=== PATIENT | female | born 1940 | race Caucasian/White ===

== ENCOUNTER 2024-01-18 20:07 | Emergency (ER) | payer MEDICARE, OTHER, SELFPAY ==
[2024-01-18 20:17] VITALS: BP 142/83; PULSE 100; RESP 22; TEMP 37.1; O2SAT 95
[2024-01-18 20:37] VITALS: BP 142/78; PULSE 100; RESP 16; TEMP 37.1; O2SAT 98
--- NOTE | 2024-01-18 20:45 | DI.CT_ITS ---
Exam(s) CT ABDOMEN PELVIS W EXAM: CT ABDOMEN PELVIS W CLINICAL HISTORY: abdominal pain, hx of divertic, LLQ and LUQ TECHNIQUE: Imaging Protocol: Axial computed tomography images with coronal and sagittal reformatted images were created and reviewed. CONTRAST MATERIAL: Intravenous: Omnipaque 350 Contrast volume:100 mL Oral: No COMPARISON: No exams were available for comparison FINDINGS: ABDOMEN: Lung Bases: Mild atelectasis or scarring is seen in the lung bases. Liver: Normal density. No measurable mass. There is mild nodularity of the liver suggesting hepatic c irrhosis. Portal, Superior Mesenteric, and Splenic Veins: Unremarkable. Gallbladder and Biliary Tract: Status post cholecystectomy. No significant biliary ductal dilatation is present. Pancreas: Normal density, no abnormal calcifications or inflammatory process. Spleen: Normal. Adrenals: No masses seen. Kidneys: Normal size, contour and axis. No radiodense stones or obstructive uropathy. No masses seen. Abdominal Aorta: Abdominal portion non-dilated. Atherosclerotic calcification is present. Bowel: The stomach is incompletely distended limiting evaluation. No gross abnormality is identified . There is diverticulosis seen in the colon. Mild inflammatory changes are seen around the mid sigm oid colon suspicious for acute diverticulitis. There is no evidence of bowel obstruction. No eviden ce of appendicitis. No abscess is seen. Peritoneal Cavity: No ascites, collection or mesenteric inflammatory response. No free air. Lymph Nodes: Within normal limits. Bones: Within normal limits for the patient's age. 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 There is grade 1 spondylolisthesis of L5 on S1. Soft Tissues: There is a small fat containing umbilical hernia. There is also a moderate-sized fat c ontaining right side lateral ventricle hernia PELVIS: Bladder: Symmetric distention, no gross wall thickening. Reproductive Organs: Unremarkable as visualized. Lymph Nodes: Within normal limits. Bones: Within normal limits for the patient's age. IMPRESSION: 1. Acute diverticulitis involving the mid sigmoid colon without evidence of abscess or free air. 2. Incidental findings in the abdomen and pelvis including fat containing umbilical hernia and modera te size fat containing right-sided lateral ventricle hernia. 3. Findings suggestive of hepatic cirrhosis. RADIATION DOSE DELIVERED: 490.15mGy.cm Total DLP DATA REPOSITORY: All CT scans at this facility are submitted to the National Radiology Data Registry (NRDR) Dose Index Registry (DIR) with the [employer] ([employer]). RADIATION OPTIMIZATION: All CT scans at this facility use at least one of these dose optimization te chniques: automated exposure control; mA and/or kV adjustment per patient size (includes targeted exa ms where dose is matched to clinical indication); or iterative reconstruction.
[2024-01-18 21:09] LABS: Abs Immature Grans 0.06 10^3/uL (0.0-0.06); Absolute Basophil Count 0.05 10^3/uL (0.0-0.2); Absolute Eosinophil Count 0.18 10^3/uL (0.0-0.7); Absolute Lymphocyte Count 1.97 10^3/uL (1.2-3.4); Absolute Monocyte Count 1.03 10^3/uL (0.1-0.8); Absolute Neutrophil Count 8.45 10^3/uL (1.2-6.7); Basophils % 0.4 %; Eosinophils % 1.5 %; HCT 42.3 % (36.0-46.0); Immature Grans % 0.5 %; Lymphocytes % 16.8 %; MCH 33.7 pg (27.0-33.0); MCHC 33.1 % (32.0-36.0); MCV 102 fL (80-95); MPV 10.3 fL (8.0-11.0); Monocytes % 8.8 %; Platelet Count 229 10^3/uL (130-400); RBC 4.16 10^6/uL (3.93-5.22); RDW 12.6 % (11.7-14.6); RDW-SD 47.7 fL; WBC 11.74 10^3/uL (4.4-10.8)
[2024-01-18 21:11] LABS: Bilirubin Negative (Negative); Blood Small (Negative); Clarity Clear (Clear); Glucose Negative (Negative); Ketones Negative (Negative); Leukocyte Esterase Negative (Negative); Nitrite Negative (Negative); Specific Gravity 1.015 (1.005-1.025); Urobilinogen 0.2 mg/dL (Up to 0.2); pH 5.5 (5-8)
[2024-01-18] MEDS: Normal Saline - Diluent 50 ML VIAL IJ (21:16)
[2024-01-18] MEDS: Omnipaque 350 MG/ML 100 ML BTL IJ (21:17)
[2024-01-18 21:22] LABS: Bacteria Negative HPF (Negative); C & S Indicated? No; Casts Negative LPF (Negative); Crystals Negative HPF (Negative); Epithelial Cells Rare HPF (Negative); Mucus Negative (Negative); Other Cells Rare Transitional (Negative); RBC 0-2 HPF (0-2); WBC Negative HPF (0-5)
[2024-01-18 21:27] LABS: ALT 22 U/L (14-59); AST 15 U/L (15-37); Albumin 4.1 g/dL (3.4-5.0); Alkaline Phosphatase 92 U/L (46-116); Anion Gap 10.3 mmol/L (3-11); BUN 29 mg/dL (7-18); Bilirubin, Total 0.83 mg/dL (0.2-1.0); CO2 25.7 mmol/L (21.0-32.0); Calcium 9.8 mg/dL (8.5-10.1); Chloride 102 mmol/L (98-107); Glucose 128 mg/dL (74-106); Lipase 57 U/L (16-77); Potassium 4.3 mmol/L (3.5-5.1); Sodium 138 mmol/L (136-145)
--- NOTE | 2024-01-18 22:33 | DI.VRAD_ITS ---
PROCEDURE INFORMATION: Exam: CT Abdomen And Pelvis With Contrast Exam date and time: 01/18/2024 9:15 PM Age: 83 years old Clinical indication: Abdominal pain; Additional info: Abdominal pain, HX of divertic, llq and luq TECHNIQUE: Imaging protocol: Computed tomography of the abdomen and pelvis with contrast. Contrast material: OMNI 350; Contrast volume: 100 ml; Contrast route: INTRAVENOUS (IV); COMPARISON: No relevant prior studies available. FINDINGS: Lungs: Minimal bibasilar atelectasis or scarring. Heart: Calcification of the mitral valve and aortic valve annulus. Coronary arteries: Minimal atherosclerotic calcification of the visualized right coronary artery. Liver: Nodular hepatic peripheral contour, compatible with cirrhosis. Mild hepatomegaly. Gallbladder and biliary ducts: Gallbladder surgically absent. Pancreas: Normal. Spleen: Normal. Adrenal glands: Mild bilateral adrenal hyperplasia. Kidneys and ureters: Normal. Stomach and bowel: Colonic diverticulosis, with acute diverticulitis involving the mid sigmoid colon, where there is wall thickening and adjacent associated inflammatory stranding. No perforation or abscess. Appendix: No evidence of appendicitis. Intraperitoneal space: Unremarkable. No free air. No significant fluid collection. Vasculature: Atherosclerotic disease of the abdominal aorta and iliac arteries. Lymph nodes: Unremarkable. No enlarged lymph nodes. Urinary bladder: Unremarkable as visualized. Reproductive: Unremarkable as visualized. Bones/joints: Left hip arthroplasty, without acute complications. Multilevel thoracolumbar spine degenerative disc space narrowing and osteophyte formation. Right L5 pars defect. Grade 1 anterolisthesis of L5 on S1. Dextroscoliosis of the lumbar spine. Soft tissues: Normal. IMPRESSION: Colonic diverticulosis, with acute diverticulitis involving the mid sigmoid colon, where there is wall thickening and adjacent associated inflammatory stranding. No perforation or abscess. Dictated and Authenticated by: Marquise Saul MD. Ordering:ANASTASIIA Corral MD
--- NOTE | 2024-01-18 22:45 | RT.EKG_ITS ---
APPROVED REPORT Exam: Resting ECG Reason for Exam: eval qtc Patient Location: E HR:86 bpm ECG Measurements Heart Rate 86 AXIS AL 151 P 40 QRSd 84 QRS 16 QT 365 T 31 QTc 436 Conclusion Sinus rhythm...normal P axis, V-rate 60- 99 Inferior infarct, old...Q >35mS, II III aVF Physician: No stemi
[2024-01-18] MEDS: metroNIDAZOLE 500 MG TAB, 3 TABS/BTL PO (23:05)
[2024-01-18 23:09] VITALS: BP 107/62; PULSE 86; RESP 16; O2SAT 94
--- NOTE | 2024-01-18 23:10 | ED.GENADUL_ITS ---
Discharge Plan Disposition Patient Disposition: Home Discharge Details Clinical Impression: Diverticulitis Primary Care Provider: Cynthia,Local ED Provider: Shayna Smith Home Meds and New Rx's Prescriptions: New oxycodone 5 mg capsule 5 mg PO Q8H PRNQty: 8 0RF ciprofloxacin HCl [Cipro] 500 mg tablet 500 mg PO BID Qty: 18 0RF metronidazole 500 mg tablet 500 mg PO TID Qty: 18 0RF Saccharomyces boulardii [Florastor] 250 mg capsule 250 mg PO BID Qty: 20 0RF Continued enalapril maleate 10 mg tablet 10 mg PO DAILY hydrochlorothiazide 12.5 mg tablet 12.5 mg PO DAILY cholecalciferol (vitamin D3) [Vitamin D3] 10 mcg (400 unit) tablet 10 mcg PO DAILY Discharge Instructions Instructions: Diverticulitis (DC) Additional Instructions: Take antibiotics as prescribed Probiotic daily while on antibiotics Oxycodone is addictive use very sparingly Take Tylenol as needed for discomfort Please return immediately should develop worsening pain, fever, chills, or if any additional complaints arise HPI General Date/Time Provider Initiated Documentation: 01/18/24 20:20 . HPI Narrative: This 83-year-old female presents with report of left lower quadrant abdominal discomfort no the past 48 hours. Remote history of diverticulitis 10 years ago. Denies any fever chills. Denies any urinary symptoms. Denies any bloody stools. Denies any nausea or vomiting. Denies trauma. Related Data Home Medications ?Medication ?Instructions ?Recorded ?Confirmed Saccharomyces boulardii 250 mg 250 mg PO BID #20 caps 01/18/24 capsule (Florastor) cholecalciferol (vitamin D3) 10 10 mcg PO DAILY 01/18/24 01/18/24 mcg (400 unit) tablet (Vitamin D3) ciprofloxacin HCl 500 mg tablet 500 mg PO BID #18 tabs 01/18/24 (Cipro) enalapril maleate 10 mg tablet 10 mg PO DAILY 01/18/24 01/18/24 hydrochlorothiazide 12.5 mg tablet 12.5 mg PO DAILY 01/18/24 01/18/24 metronidazole 500 mg tablet 500 mg PO TID #18 tabs 01/18/24 oxycodone 5 mg capsule 5 mg PO Q8H PRN #8 caps 01/18/24 Previous Rx's ?Medication ?Instructions ?Recorded Saccharomyces boulardii 250 mg 250 mg PO BID #20 caps 01/18/24 capsule (Florastor) ciprofloxacin HCl 500 mg tablet 500 mg PO BID #18 tabs 01/18/24 (Cipro) metronidazole 500 mg tablet 500 mg PO TID #18 tabs 01/18/24 oxycodone 5 mg capsule 5 mg PO Q8H PRN #8 caps 01/18/24 Allergies Allergy/AdvReac Type Severity Reaction Status Date / Time amoxicillin AdvReac Intermediate Dizziness/L Verified 01/18/24 20:17 ighthead Penicillins AdvReac Intermediate Dizziness/L Verified 01/18/24 20:17 ighthead General Stated Complaint: Abd Prob ALESHA: 3 Exam Narrative Exam Narrative: Patient presenting with left lower quadrant tenderness without rebound or guarding, alert and oriented, lungs clear to auscultation, no respiratory distress, distal pulses intact Course Vital Signs Vital signs: Vital Signs Temperature 37.1 C 01/18/24 20:17 Pulse 100 H 01/18/24 20:17 Respiratory Rate 22 01/18/24 20:17 Blood Pressure 142/83 H 01/18/24 20:17 Pulse Oximetry 95 01/18/24 20:17 Temperature 37.1 C 01/18/24 20:37 Temperature Source Tympanic 01/18/24 20:37 Pulse 86 01/18/24 23:09 Respiratory Rate 16 01/18/24 23:09 Respiratory Effort Normal, Non-Labored 01/18/24 20:33 Blood Pressure 107/62 01/18/24 23:09 Blood Pressure Position Sitting 01/18/24 20:17 Pulse Oximetry 94 01/18/24 23:09 Oxygen Delivery Method Room Air 01/18/24 20:37 Oxygen Flow Rate 0 01/18/24 20:17 End Tidal Co2 6 01/18/24 20:37 Pain Level 6 01/18/24 20:17 Lab/Test Results Lab/Test Results: Laboratory Tests Range/Units 01/18/24 01/18/24 20:30 21:04 WBC (4.4-10.8) 10^3/uL 11.74 H RBC (3.93-5.22) 10^6/uL 4.16 Hgb (11.2-15.7) g/dL 14.0 Hct (36.0-46.0) % 42.3 MCV (80-95) fL 102 H MCH (27.0-33.0) pg 33.7 H MCHC (32.0-36.0) % 33.1 RDW (11.7-14.6) % 12.6 Plt Count (130-400) 10^3/uL 229 MPV (8.0-11.0) fL 10.3 Immature Gran % % 0.5 Neutrophils % % 72.0 Lymphocytes % % 16.8 Monocytes % % 8.8 Eosinophils % % 1.5 Basophils % % 0.4 Nucleated RBC % (0.0-0.3) % 0.0 Absolute Neutrophils (1.2-6.7) 10^3/uL 8.45 H Absolute Lymphocytes (1.2-3.4) 10^3/uL 1.97 Absolute Monocytes (0.1-0.8) 10^3/uL 1.03 H Absolute Eosinophils (0.0-0.7) 10^3/uL 0.18 Absolute Basophils (0.0-0.2) 10^3/uL 0.05 Sodium (136-145) mmol/L 138 Potassium (3.5-5.1) mmol/L 4.3 Chloride (98-107) mmol/L 102 Carbon Dioxide (21.0-32.0) mmol/L 25.7 Anion Gap (3-11) mmol/L 10.3 BUN (7-18) mg/dL 29 H Creatinine (0.55-1.02) mg/dL 1.0 Est GFR (CKD-EPI 2020) (mL/min/1.73m2) 56.60 Glucose (74-106) mg/dL 128 H Calcium (8.5-10.1) mg/dL 9.8 Total Bilirubin (0.2-1.0) mg/dL 0.83 AST (15-37) U/L 15 ALT (14-59) U/L 22 Alkaline Phosphatase (46-116) U/L 92 Total Protein (6.4-8.2) g/dL 8.0 Albumin (3.4-5.0) g/dL 4.1 Lipase (16-77) U/L 57 Urine Color (Yellow) Yellow Urine Clarity (Clear) Clear Urine pH (5-8) 5.5 Ur Specific [place] (1.005-1.025) 1.015 Urine Protein (Neg-Trace) mg/dL Negative Urine Ketones (Negative) mg/dL Negative Urine Blood (Negative) Small H Urine Nitrite (Negative) Negative Urine Bilirubin (Negative) Negative Urine Urobilinogen (Up to 0.2) mg/dL 0.2 Ur Leukocyte Esterase (Negative) Negative Urine RBC (0-2) HPF 0-2 Urine WBC (0-5) HPF Negative Ur Epithelial Cells (Negative) HPF Rare Urine Crystals (Negative) HPF Negative Urine Bacteria (Negative) HPF Negative Urine Casts (Negative) LPF Negative Urine Mucus (Negative) Negative Urine Other (Negative) Rare Transitional Ur Culture Indicated? No Urine Glucose (Negative) mg/dL Negative Medical Decision Making 83-year-old female presenting with left lower quadrant abdominal tenderness without rebound or guarding, CT shows evidence of acute diverticulitis without evidence of perforation per radiology interpretation my review, diagnostic labs are reassuring, very mild leukocytosis at 11,000. Vitals are remained stable, patient has not requested any pain medication throughout this encounter. Initiated Cipro and Flagyl as patient is penicillin allergic. EKG was ordered, no QTc prolongation. Oxycodone was supplied, risk of addiction reviewed. Patient encouraged to follow-up with primary care physician in 1 to 2 days for reassessment, return precautions reviewed and patient expressed understanding. Discharged home in stable condition with stable vitals Quality:SDOH Health Related Social Needs: No Data to Display PFSH All Active Problems (Updated 01/18/24 @ 22:55 by JAMESON Rodríguez) Diverticulitis (Chronic) Social History Smoking/Tobacco Use Status: Never Smoking risk assessment performed?: Yes Alcohol Intake: current Alcohol Intake frequency: holidays/special occasions only Substance use type: does not use Housing: house [facility] Have you Been Recently Intoxicated or Drunk Within the Last 30 days?: No Have you Ever Experienced Previous Episodes of Alcohol Withdrawal?: No Have you ever Experienced Withdrawal Seizures?: No Have you ever Experienced Delirium Tremens(DT)s?: No Have you ever undergone Alcohol Rehabilitation Treatment (i.e, inpt ot outpatient treatment programs)?: No Have you ever Experienced Blackouts?: No Have you ever Combined Alcohol with other Downers within the last 90 days?: No Have you ever Combined Alcohol with any other Substance of Abuse during the last 90 days?: No Positive Blood Alcohol level on Presentation? [PCS.BAL]: No Evidence of Increased Autonomic Activity (i.e. HR>120, tremor, sweating, agitation, nausea)?: No Result: 0
--- NOTE | 2024-01-22 15:05 | W.EDPROG ---
Date of service: 01/22/24 Time of Service: 15:05 Medical Decision Making This patient was prescribed oxycodone capsules following a recent ED visit in the setting of diverticulitis. Unfortunately her pharmacy did not have capsules so we will order tablets instead. oxycodone 5 mg capsule 5 mg PO Q8H PRNQty: 8 0RF Quality:SDOH Health Related Social Needs: No Data to Display Discharge Plan Disposition Patient Disposition: Home Discharge Details Clinical Impression: Diverticulitis Primary Care Provider: Cynthia,Local ED Provider: Shayna Smith Home Meds and New Rx's Prescriptions: New ciprofloxacin HCl [Cipro] 500 mg tablet 500 mg PO BID Qty: 18 0RF metronidazole 500 mg tablet 500 mg PO TID Qty: 18 0RF Saccharomyces boulardii [Florastor] 250 mg capsule 250 mg PO BID Qty: 20 0RF oxycodone 5 mg tablet 5 mg PO Q8H PRNQty: 8 0RF Continued enalapril maleate 10 mg tablet 10 mg PO DAILY hydrochlorothiazide 12.5 mg tablet 12.5 mg PO DAILY cholecalciferol (vitamin D3) [Vitamin D3] 10 mcg (400 unit) tablet 10 mcg PO DAILY Discharge Instructions Instructions: Diverticulitis (DC) Additional Instructions: Take antibiotics as prescribed Probiotic daily while on antibiotics Oxycodone is addictive use very sparingly Take Tylenol as needed for discomfort Please return immediately should develop worsening pain, fever, chills, or if any additional complaints arise Discharge Data Discharge Date/Time-TO BE ENTERED AT DEPARTURE: 01/18/24 23:11
== END 2024-01-18 23:11 | disposition home or self-care (01) ==
PROVIDERS: Emergency Provider Physician Assistant
DX: K57.30 Diverticulosis of large intestine without perforation or abscess without bleeding (principal)
CPT/HCPCS: 00123; 80053; 83690; 93005; 96365; 99285; 74177; 81003; 81015; 85025; 93010; 99284; J0131; J3490